=== PATIENT | male | born 1955 | race African-American/Black ===

== ENCOUNTER 2016-03-17 10:59 | Observation (INO) ==
[2016-03-17] MEDS ORDERED: MORPHINE 2 MG/ML SYRINGE IVP STA (11:04)
[2016-03-17] MEDS ORDERED: ZOFRAN 4 MG/2 ML IVP STA (11:04)
[2016-03-17] MEDS ORDERED: VASOTEC IV IVP STA (11:08)
[2016-03-17 11:13] LABS: BASOPHILS % (AUTO) 0.6 % (0.0-3.0); EOSINOPHILS # (AUTO) 0.1 K/ul (0.0-0.7); EOSINOPHILS % (AUTO) 1.3 % (0.0-7.0); HEMOGLOBIN 16.5 g/dl (14.0-18.0); IMMATURE GRANULOCYTE % (AUTO) 0.2 % (0.0-5.0); LYMPHOCYTES # (AUTO) 1.9 K/uL (0.60-3.4); LYMPHOCYTES % (AUTO) 35.8 (10.0-50.0); MEAN CORPUSCULAR HEMOGLOBIN 29.7 pg (27.0-31.0); MEAN CORPUSCULAR HGB CONC 35.1 (31.8-35.4); MEAN CORPUSCULAR VOLUME 84.7 fl (80.0-94.0); MONOCYTES # (AUTO) 0.6 K/uL (0.4-2.0); MONOCYTES % (AUTO) 10.3 (0-10); NEUTROPHILS # (AUTO) 2.8 K/ul (2.0-6.9); NEUTROPHILS % (AUTO) 51.8; PLATELET COUNT 158 10^3/uL (140-440); RED BLOOD COUNT 5.55 10^6/ul (4.70-6.10); WHITE BLOOD COUNT 5.34 K/ul (4.2-10.2)
[2016-03-17 11:25] LABS: H. PYLORI ANTIBODY NEGATIVE (NEGATIVE); H.PYLORI INTERNAL QC INTERNAL QC VALID
--- NOTE | 2016-03-17 11:30 | DI ---
EXAM: CHEST FRONTAL VIEW HISTORY: Chest pain. COMPARISON: None FINDINGS: Heart size and mediastinum within normal limits. Lungs are free of infiltrate. No c onsolidation or pleural fluid. There is no pneumothorax or acute bony finding. IMPRESSION: Findings within normal limits.
[2016-03-17 11:41] LABS: BILIRUBIN,URINE Negative (NEGATIVE); KETONES,URINE Negative (NEGATIVE); LEUKOCYTE ESTERASE ,URINE Negative (NEGATIVE); NITRITE,URINE Negative (NEGATIVE); PROTEIN,URINE Negative (NEGATIVE); URINE, BLOOD Trace-intact (NEGATIVE)
--- NOTE | 2016-03-17 11:41 | ED.PDOC ---
General ED Provider: Dr. SIMONE ASHTON JR Chief Complaint: Chest Pain Stated Complaint: states has had mid chest pressure past month--"bad indigestion "--chest pressure today--seen at dr diamond office and sent directly to er due to chest pressure and htn-pt anxious--states he took b/p med this am prior to er --pressure to chest intermittent[End]2DAYS 98.4 118 16 234/132 5/10. : occ lortab use--last used 1 month ago Time Seen by Physician: 11:00 Mode of Arrival: Walk-In Information Source: Patient Exam Limitations: No limitations Primary [facility] and Triage Documentation Reviewed and Agree: No Review of Systems - Review Of Systems Constitutional: Reports: Chills, Diaphoresis, Malaise, Weakness Eyes: Reports: No symptoms Ears, Nose, Mouth, Throat: Reports: No symptoms Respiratory: Reports: Short of air Cardiac: Reports: Chest pain ((PRESSURE)) GI: Reports: Abdominal pain, Nausea : Reports: No symptoms Musculoskeletal: Reports: No symptoms Skin: Reports: No symptoms Neurological: Reports: Anxiety Endocrine: Reports: No symptoms Hematologic/Lymphatic: Reports: No symptoms All Other Systems: Other Past Medical History - Past Medical History Endocrine: Reports: None Cardiovascular: Reports: Hypertension Respiratory: Reports: None Hematological: Reports: None Gastrointestinal: Reports: Liver (hep c ) Genitourinary: Reports: None Neuro/Psych: Reports: None Musculoskeletal: Reports: None Cancer: Reports: None Other Pertinent Past Medical History: left leg with hansen ana--[End]hep c HTN - Surgical History General Surgical History: Reports: Orthopedic (left leg with steel ana) - Family History Family History: Reports: Unknown - Social History Smoking Status: Former smoker Hx Substance Use: Yes (occ lortab use--last used 1 month ago) Alcohol Screening: Occasionally Physical Exam - Physical Exam Appearance: Well-appearing Pain Distress: Moderate Eyes: ROBERT, EOMI, Conjunctiva clear ENT: Ears normal, Nose normal, Oropharynx normal Neck: Supple Respiratory: Airway patent, Breath sounds clear, Breath sounds equal, Respirations nonlabored Cardiovascular: RRR, Pulses normal, No rub, No murmur GI/: Soft, Nontender, No masses, Bowel sounds normal, No Organomegaly Musculoskeletal: Normal strength, ROM intact, No edema, No calf tenderness Skin: Warm, Dry, Normal color Neurological: Sensation intact, Motor intact, Reflexes intact, Cranial nerves intact, Alert, Oriented Psychiatric: Affect appropriate, Mood appropriate Physician Notification - Case Discussed Physician Notified: KAREN Time of Notification: 13:43 (STRESS ECHO ADMIT CARDIOLOGY CONSULT) Critical Care Note - Critical Care Note Total Time (mins): 35 Course - Course Hematology/Chemistry: 03/17/16 11:10 03/17/16 11:10 Orders, Labs, Meds: Lab Review 03/17/16 03/17/16 03/17/16 11:10 11:32 11:40 WBC 5.34 RBC 5.55 Hgb 16.5 Hct 47.0 MCV 84.7 MCH 29.7 MCHC 35.1 RDW Coeff of Dalila 11.7 Plt Count 158 Immature Gran % (Auto) 0.2 Neut % (Auto) 51.8 Lymph % (Auto) 35.8 [place] % (Auto) 10.3 H Eos % (Auto) 1.3 Baso % (Auto) 0.6 Immature Gran # (Auto) 0.0 Neut # 2.8 Lymph # 1.9 [place] # 0.6 Eos # 0.1 Baso # 0.0 D-Dimer 0.19 Sodium 140 Potassium 3.6 Chloride 104 Carbon Dioxide 24 Anion Gap 15.6 BUN 9 Creatinine 0.90 Estimated GFR (MDRD) 104.00 BUN/Creatinine Ratio 10.00 Glucose 101 Calcium 9.8 Total Bilirubin 0.80 AST 59 H ALT 110 H Alkaline Phosphatase 56 Total Creatine Kinase 196 CK-MB (CK-2) 1.4 CK-MB (CK-2) % 0.35161 Troponin I < 0.0100 B-Natriuretic Peptide 48 Total Protein 8.5 H Albumin 4.7 Globulin 3.8 Albumin/Globulin Ratio 1.24 Amylase 93 Lipase 34 Urine Color Yellow Urine Clarity Clear Urine pH 7.0 Ur Specific [place] 1.015 Urine Protein Negative Urine Glucose (UA) Negative Urine Ketones Negative Urine Blood Trace-intact Urine Nitrite Negative Urine Bilirubin Negative Urine Urobilinogen 0.2 Ur Leukocyte Esterase Negative Urine Microscopic RBC 0-2 Ur Squamous Epith Cells Not present Urine Opiates Screen Negative Ur Oxycodone Screen Negative Urine Methadone Screen Negative Ur Propoxyphene Screen Negative Ur Barbiturates Screen Negative U Tricyclic Antidepress Negative Ur Phencyclidine Scrn Negative Ur Amphetamine Screen Negative U Methamphetamines Scrn Negative U Benzodiazepines Scrn Positive Urine Cocaine Screen Negative U Cannabinoids Screen Negative H. pylori IgG Antibody Negative Orders Category Date Time Status EKG-(ED ONLY) Stat CARDIO 03/17/16 11:04 Completed STRESS ECHO Routine CARDIO 03/17/16 13:35 Ordered NPO REMINDER: IMAGING ONCE CARE 03/17/16 11:06 Completed ED DEPARTMENT SALES MANAGER APPLIED .ONCE EMERGENCY 03/17/16 11:04 Active ED IV/MEDIPORT/POWERPORT .ONCE EMERGENCY 03/17/16 11:04 Active AMYLASE Stat LAB 03/17/16 11:10 Completed B-TYPE NATRIURETIC PEPTIDE Stat LAB 03/17/16 11:10 Completed CBC W/ AUTO DIFF Stat LAB 03/17/16 11:10 Completed COMPREHENSIVE METABOLIC PANEL Stat LAB 03/17/16 11:10 Completed CREATINE KINASE Stat LAB 03/17/16 11:10 Completed D-DIMER Stat LAB 03/17/16 11:10 Completed H. PYLORI SCREEN Stat LAB 03/17/16 11:10 Completed LIPASE Stat LAB 03/17/16 11:10 Completed TROPONIN I Stat LAB 03/17/16 11:10 Completed URINALYSIS C & S IF INDICATED Stat LAB 03/17/16 11:32 Completed URINE DRUG SCREEN (RAPID FOR ED) [DRUG SCREEN, URINE, LAB 03/17/16 11:40 Completed RAPID] Stat 0.9 % Sodium Chloride [Saline Flush] MEDS 03/17/16 11:04 Active 1 syr IVF PRN PRN Enalaprilat Dihydrate [Vasotec IV] MEDS 03/17/16 11:08 Discontinued 1.25 mg IVP ONCE STA Morphine Sulfate [Morphine 2 mg/ml Syringe] MEDS 03/17/16 11:04 Discontinued 2 mg IVP ONCE STA Ondansetron HCl/Pf [Zofran 4 mg/2 ml] MEDS 03/17/16 11:04 Discontinued 4 mg IVP ONCE STA CHEST, 1V AP ONLY Stat RADS 03/17/16 11:04 Completed U/S ABDOMEN, RT. UPPER QUAD Stat RADS 03/17/16 11:04 Completed Medications Generic Name Dose Route Start Last Admin Trade Name Freq PRN Reason Stop Dose Admin Sodium Chloride 1 syr 03/17/16 11:04 03/17/16 11:27 Saline Flush IVF 1 syr PRN PRN Administration To flush IV Discontinued Medications Generic Name Dose Route Start Last Admin Trade Name Carlos PRN Reason Stop Dose Admin Enalaprilat 1.25 mg 03/17/16 11:08 03/17/16 11:26 Vasotec Iv IVP 03/17/16 11:09 1.25 mg ONCE STA Administration Morphine Sulfate 2 mg 03/17/16 11:04 03/17/16 11:30 Morphine 2 Mg/Ml Syringe IVP 03/17/16 11:05 2 mg ONCE STA Administration Ondansetron HCl 4 mg 03/17/16 11:04 03/17/16 11:28 Zofran 4 Mg/2 Ml IVP 03/17/16 11:05 4 mg ONCE STA Administration Vital Signs: Temp Pulse Resp BP Pulse Ox 03/17/16 11:00 98.4 F 118 H 16 234/132 H 98 SATNAM Risk Score SATNAM Risk Score: Risk Score Odds of by 30D 0 0.1 (0.1-0.2) 1 0.3 (0.2-0.3) 2 0.4 (0.3-0.5) 3 0.7 (0.6-0.9) 4 1.2 (1.0-1.5) 5 2.2 (1.9-2.6) 6 3.0 (2.5-3.6) 7 4.8 (3.8-6.1) Departure - Departure Time of Disposition: 11:45 Disposition: HOME SELF-CARE Discharge Problem: Chest pain Instructions: Chest Pain (ED), Chest Wall Pain (ED) Condition: Good Pt referred to PMD for follow-up: No (FOLLOW UP [facility]) Allergies/Adverse Reactions: Allergies No Known Allergies Allergy (Unverified 03/17/16 11:10)
[2016-03-17 11:46] LABS: ADD URINE MICROSCOPIC YES
[2016-03-17 11:52] LABS: ALANINE AMINOTRANSFERASE 110 U/L (12-78); ALBUMIN 4.7 g/dL (3.4-5.0); ALBUMIN/GLOBULIN RATIO 1.24; ALKALINE PHOSPHATASE 56 U/L (56-119); AMYLASE 93 U/L (25-115); ANION GAP 15.6; ASPARTATE AMINO TRANSFERASE 59 U/L (15-37); BLOOD UREA NITROGEN 9 mg/dL (7-18); CALCIUM 9.8 mg/dL (8.2-10.2); CARBON DIOXIDE 24 mmol/L (23-31); CHLORIDE 104 mmol/L (98-107); CREATINE KINASE 196 U/L; GLUCOSE 101 mg/dL (82-115); LIPASE 34 U/L (8-78); POTASSIUM 3.6 mmol/L (3.5-5.1); SODIUM 140 mmol/L (136-145); TOTAL PROTEIN 8.5 g/dL (5.8-8.1)
[2016-03-17 11:57] LABS: CREATINE KINASE MB 1.4 ng/ml (0.0-3.6)
[2016-03-17 11:57] LABS: COCAIN SCREEN,URINE NEGATIVE (NEGATIVE)
--- NOTE | 2016-03-17 12:04 | US ---
Exam: Limited right upper quadrant abdominal sonogram Clinical indication: Right upper quadrant abdominal tenderness with history of hepatitis C. Findings: There are no prior studies available for comparison. The pancreas has an unremarkable sonographic appearance, without sonographically detected focal abno rmality. The IVC is patent. The liver has an unremarkable sonographic appearance, without sonographically detected focal abnorma lity. There is no intrahepatic biliary duct dilatation. There is normal antegrade portal venous fl ow. There may be a tiny gallbladder wall polyp of no clinical concern measuring maybe 0.2 cm. Otherwise , the gallbladder is unremarkable. The common bile duct measures 0.4 cm in diameter. There is no ascites. The right kidney measures 10.0 x 4.1 x 3.9 cm in diameter. The right renal cortex measures 0.8 cm i n thickness.. Impression: Unremarkable right upper quadrant abdominal sonogram.
[2016-03-17] MEDS ORDERED: TYLENOL PO PRN (13:46)
[2016-03-17] MEDS ORDERED: VASOTEC IV IVP PRN (13:51)
[2016-03-17] MEDS ORDERED: ZESTORETIC 20-12.5 MG TAB PO SCH (15:00)
[2016-03-17] MEDS ORDERED: NORVASC PO STA (16:35)
[2016-03-17 16:45] VITALS: BMI 25.8
[2016-03-17] MEDS: PROTONIX PO SCH (16:49)
[2016-03-17] MEDS: SODIUM CHLORIDE 1,000 ML IV SCH (16:50)
[2016-03-17] MEDS ORDERED: ATIVAN PO STA (18:21)
[2016-03-17 20:55] LABS: TROPONIN I 0.01 ng/ml (0.0000-0.4000)
[2016-03-17 21:20] LABS: CREATINE KINASE MB 0.9 ng/ml (0.0-3.6)
[2016-03-18 04:07] LABS: BASOPHILS % (AUTO) 0.6 % (0.0-3.0); EOSINOPHILS # (AUTO) 0.1 K/ul (0.0-0.7); EOSINOPHILS % (AUTO) 1.7 % (0.0-7.0); HEMATOCRIT 45.7 % (42.0-52.0); IMMATURE GRANULOCYTE % (AUTO) 0.2 % (0.0-5.0); LYMPHOCYTES # (AUTO) 1.9 K/uL (0.60-3.4); LYMPHOCYTES % (AUTO) 36.5 (10.0-50.0); MEAN CORPUSCULAR HEMOGLOBIN 30.1 pg (27.0-31.0); MEAN CORPUSCULAR VOLUME 85.9 fl (80.0-94.0); MONOCYTES # (AUTO) 0.5 K/uL (0.4-2.0); MONOCYTES % (AUTO) 9.8 (0-10); NEUTROPHILS # (AUTO) 2.7 K/ul (2.0-6.9); NEUTROPHILS % (AUTO) 51.2; PLATELET COUNT 167 10^3/uL (140-440); RED BLOOD COUNT 5.32 10^6/ul (4.70-6.10); WHITE BLOOD COUNT 5.18 K/ul (4.2-10.2)
[2016-03-18 04:26] LABS: ALBUMIN 4.1 g/dL (3.4-5.0); ALBUMIN/GLOBULIN RATIO 1.17; ANION GAP 12.7; BILIRUBIN,TOTAL 1.6 mg/dL (0.00-1.20); BUN/CREATININE RATIO 9.25; CALCIUM 9.1 mg/dL (8.2-10.2); CREATININE 1.08 mg/dL (0.60-1.10); POTASSIUM 3.7 mmol/L (3.5-5.1); TOTAL PROTEIN 7.6 g/dL (5.8-8.1)
[2016-03-18 04:30] LABS: CREATINE KINASE 106 U/L
[2016-03-18 04:43] LABS: CHOL/HDL RATIO 3.2 (4.5-6.4)
[2016-03-18] MEDS: SODIUM CHLORIDE 1,000 ML IV SCH ×2 (05:09)
[2016-03-18] MEDS: PROTONIX PO SCH (05:46)
--- NOTE | 2016-03-18 08:37 | HP ---
CHIEF COMPLAINT/ HISTORY OF PRESENT ILLNESS: Chest pressure more to the right and the midline. He also has some abdominal discomfort radiating upwards towards the chest and spreading to both left and right anterior chest. The patient claimed that he had not been feeling well since about a month ago. The patient wanted to just stay in bed and do nothing. He didn't really know what was going on. He also had experienced this intermittent chest pressure but not accompanied by nausea, vomiting or diaphoresis. The patient was seen at the office today for followup and he did complain of the chest pressure and questioning he still had the chest pressure and his blood pressure was elevated to 110 systolic. The patient had not taken his medications so he took the Lisinopril Hydrochlorothiazide 20-12.5mg at the office. His lungs were clear. Heart is normal sinus rhythm slightly rapid, abdomen no mass and no bruit. Because of the chest pain and pressure this patient was advised to go to the emergency room. I did tell him that I could work him up but he would not in the room he would be sitting in the waiting room and they will call him for every test that has to be done. He agreed to go to the emergency room and the emergency room was then notified about the patient 's coming over for the reason. PAST PERSONAL HISTORY: The patient is hypertensive History of hepatitis C, untreated Steel ana on the left leg from fracture FAMILY HISTORY: Mother had COPD and congestive heart failure SOCIAL HISTORY: The patient is single and works with [email or web address], [employer]. He stopped smoking several years ago and occasional alcohol drink and the last one was about a month ago. MEDICATIONS: Lisinopril/Hydrochlorothiazide 20-12.5mg one daily ALLERGIES: No known drug allergies. REVIEW OF SYSTEMS: CONSTITUTIONAL: The patient is alert, oriented time four with no fever and no chills. No significant fatigue. DEBONE SUPERVISOR: Denies any dizziness or severe headaches. No history of seizures disorder. No History of syncope. VISUAL: The patient denies any double vision, blurred vision or transient loss of vision. AUDITORY: The patient hears quite well. Denies any tinnitus, pain or drainage. RESPIRATORY: No cough, no hemoptysis. CARDIOVASCULAR: The patient has tightness and pressure in the anterior chest more to the right side of the sternum. No associated with nausea, anorexia or diaphoresis. This problem had been intermittent over the last month. GASTROINTESTINAL: The patient had no nausea, anorexia and no dysphagia. He has some intermittent abdominal discomfort from the lower abdomen going up towards the chest. GENITOURINARY: Denies any pain, frequency or urgency of urination. MUSCULOSKELETAL: The patient has no significant joint pains. ENDOCRINE: Negative. INTEGUMENT: Denies any rash or pleuritis HEMATOLOGIC: The patient has Hep C for some time and had not been treated. He has been advised to seek treatment and had been referred to GI previously. PSYCHIATRIC: Affect is normal. The patient however is more or less anxious and he does tell me that's what he is. Told him that he should just relax. His anxiety isn't going to be helpful to him anytime now or anytime in the future. PHYSICAL EXAMINATION: GENERAL: The patient is a 61 year old male, black admitted to the hospital because of chest tightness and uncontrolled hypertension. Rated the pain at 5 on the scale of 0-10. The patient is 5'9 and 180 pounds in the emergency room was 174 on admission to the floor. VITAL SIGNS: Blood pressure recorded in the emergency room was 234/132, temperature 98.4, pulse 118 and respiratory rate 16. HEAD: Unremarkable. FACE: Symmetrical and equal with no facial weakness. No tenderness in the frontal maxillary sinus areas to palpation under pressure. EYES: Pupils equal/reactive to light. About 3mm in size. Conjunctivae not pale. Sclerae not icteric. MOUTH: Unremarkable. THROAT: No inflammation, tumors or exudate. NECK: No masses. No bruit. No tenderness. No rigidity. CHEST: Symmetrical and equal with some tenderness in the sternum to palpation but not significant. Good expansion. LUNGS: Breaths are heard in both sides. No rales or wheezing. HEART: Audible and regular with good tones. Somewhat tachycardiac. ABDOMEN: Flat and soft with no remarkable tenderness. No guarding, Bowel sounds active. No masses palpable. Liver not palpable. LOWER EXTREMITIES: Symmetrical and equal with no left edema and no tenderness in the calf muscles. UPPER EXTREMITIES: Symmetrical and equal. ASSESSMENT: 1. Chest Oppression, etiology undetermined 2. Hypertension, uncontrolled 3. History of Hepatitis C,no history of treatment MTDD
[2016-03-18] MEDS ORDERED: HYZAAR 50-12.5 MG TAB PO SCH (09:00)
[2016-03-18 15:39] VITALS: BP 119/70; TEMP 98
--- NOTE | 2016-03-19 08:58 | STRESSMOD ---
Ordering Physician: FILIPE LAGUERRE Date of Test: 03/18/16 Medical History : CHEST PAIN, HYPERTENSION Current Medications: HYZAAR, PROTONIX Physical Findings: S1, S2, NO S3 Resting EKG: SINUS RHYTHM/NO ACUTE CHANGES Target Heart Rate: 135/159 STAGE MPH/GRADE HEART RATE BPM BLOOD PRESSURE mmhg RHYTHM S-T SEGMENT UP DOWN SYMPTOMS,COMMENTS At Rest 73 142/80 SR X NONE 1 1.7/0% 121 160/58 SR X NONE 2 1.7/5% 3 1.7/10% 4 2.5/12% 5 3.4/14% 6 4.2/16% 7 5.18% Immediately after 136 160/92 SR X FATIGUE Total Time: 6:08 Maximum Heart Rate Reached: 136 Reason for Termination: FATIGUE 5 MIN POST EXERCISE: HR 86/BPM, BP 160/88 MMHG ____ INTERPRETATION: 98% OXYGEN SATURATION WITH EXERCISE ON ROOM AIR METS 4.0 1. NO EVIDENCE OF ISCHEMIA BY ST- T WAVE 2. NO CHEST PAIN OR CHEST DISCOMFORT 3. BLOOD PRESSURE RESPONSE:HYPERTENSION 4. NO ARRHYTHMIAS NORMAL LEFT VENTRICULAR CONTRACTILITY--RESTING AND POST EXERCISE MTDD
--- NOTE | 2016-03-19 09:01 | ECHOSTRESS ---
Date of Exam: 03/18/16 [facility] Reason for Echo: CHEST PAIN, HYPERTENSION, STRESS TEST--NO ISCHEMIA M-Mode Normal Adult Results LV Dimensions Normal Adult Results AoV Opening excursions >1.6 LVEDD-base- 3.5-5.8 Ao root dimensions 2.0-3.7 LVESD-base- 3.1-4.6 L. Atrium dimensions 1.9-3.8 Post. Wall thickness 0.8-1.1 IV septum (thickness) 0.7-1.2 Post. Wall excursion 0.72-1.3 Septal motion Systolic motion R. Ventricular cavity 1.5-2.0 LVEF 60% Paradoxical septal wall motion 2-D: NORMAL LEFT VENTRICULAR CONTRACTILITY--RESTING AND POST EXERCISE M-MODE: MV: AV: TV: PV: CHAMBER SIZE: WALL MOTION: NORMAL LEFT VENTRICULAR CONTRACTILITY--RESTING AND POST EXERCISE PERICARDIUM: INTERPRETATION: 1. NORMAL LEFT VENTRICULAR CONTRACTILITY--RESTING AND POST EXERCISE MTDD
--- NOTE | 2016-03-19 09:29 | DS ---
PATIENT IDENTIFICATION: 61-year-old black male admitted to the hospital because of anterior chest pain more to the right of the sternum. This patient had this problem intermittently over one month. The pain was described as oppressive or pressure but not accompanied by nausea, anorexia or diaphoresis. He was evaluated in the emergency room and the workup was essentially normal consisting of CK, troponin , electrocardiogram and chest x-ray. D. dimer was normal 0.19. The patient was admitted to the hospital for further observation and further testing. The patient's blood pressure also was markedly elevated at the office as well as in the emergency room and also in the initial hours of admission. The patient at 10 o'clock, 03/17/16 had a blood pressure of 120/73; at midnight 03/18/16 blood pressure 111/73. Blood pressure in the emergency room was 234/132 and when admitted to the floor the blood pressure on admission was 193/127 left, 185/111 right. The patient was seen by school nurse in consultation and stress echo was done. The verbal report to me was the stress test was negative for ischemia and the echocardiogram was essentially normal. I do not have this report. I did call the technologist and he repeated to me the same thing. The patient at time of discharge was alert, feeling much better without any chest oppression. The epigastric distress has improved remarkably with Protonix and he would like to continue the medication. His vital signs again at two o'clock in the afternoon was recorded with a temperature of 98, pulse 78, BP 119/70, respiratory rate 18, oxygen saturation 94% on room air. He is alert and oriented with movement of all extremities and no facial weakness. NECK: No mass, no bruit. LUNGS: Clear to auscultation. HEART: Audible and regular with good tones. ABDOMEN: Nontender. Hepatitis C, RNA by PCR was requested prior to discharge. This patient on discharge is prescribed the following medication, Hyzaar 50/12.5 one twice a day and Protonix 40 mg tablet one daily before a meal. He was further instructed to see me one week from today at the office to monitor his hypertension. His lipid panel is normal and no statin medication is prescribed at this time. FINAL ASSESSMENT: 1. CHEST PAIN TO THE RIGHT OF THE STERNUM, PRESSURE SENSATION, ETIOLOGY UNDETERMINED. 2. HYPERTENSION, SEVERE NOW CONTROLLED. 3. HISTORY OF HEPATITIS C, NOT TREATED ACCORDING TO THE PATIENT. PROGNOSIS: Guarded. MTDD
--- NOTE | 2016-03-19 09:41 | ECHO2D ---
Date of Exam: 03/18/16 Ordering Physician: [facility] Reason for Echo: CHEST PAIN, HYPERTENSION M-Mode Normal Adult Results LV Dimensions Normal Adult Results AoV Opening excursions >1.6 >1.6 LVEDD-base- 3.5-5.8 5.0 Ao root dimensions 2.0-3.7 3.3 LVESD-base- 3.1-4.6 L. Atrium dimensions 1.9-3.8 4.0 Post. Wall thickness 0.8-1.1 1.0 IV septum (thickness) 0.7-1.2 1.0 Post. Wall excursion 0.72-1.3 NORMAL Septal motion NORMAL Systolic motion R. Ventricular cavity 1.5-2.0 NORMAL LVEF 60% 54% Paradoxical septal wall motion NORMAL 2-D : 2-D M Mode Echocardiogram was performed using apical four chamber and left parasternal long and short axis views. Mitral, tricuspid and aortic valves appear to be normal. Contractility of the left ventricle seems to be normal, so is the cavity size. Left atrial cavity size and aortic root appear to be normal. There is no pericardial effusion. There is no thrombus noted in the left ventricular or left aortic cavity. No mitral valve prolapse noted. M-MODE: MV: NORMAL AV: NORMAL TV: NORMAL PV: CHAMBER SIZE: NORMAL WALL MOTION: NORMAL PERICARDIUM: NORMAL INTERPRETATION: 1. NORMAL 2 "D" "M" MODE ECHO MTDD
[2016-03-20 19:20] LABS: HEPATITIS C GENOTYPE 1a (.)
[2016-03-23 09:24] LABS: HCV LOG 10 6.272 (.)
--- NOTE | 2016-03-23 13:50 | CONS ---
DATE OF SERVICE: 03/18/16 CONSULT FOLLOWUP SUBJECTIVE: 61-year-old white male was seen for evaluation of chest pain. The patient's chest pain was pressure, steady ache, lower substernal localized, more like bad indigestion, practically not consistent with coronary insufficiency. So far, the patient's EKG shows sinus rhythm with LVH, unchanged times two. Telemetry does not show any ST wave changes suggestive of any acute myocardial event. The patient's cardiac markers were negative. REVIEW OF SYSTEMS: CONSTITUTIONAL: No night sweats. No fatigue, malaise, lethargy. No fever or chills. HEENT: Eyes: No visual changes. No eye pain. No eye discharge. ENT: No runny nose. No epistaxis. No sinus pain. No sore throat. No odynophagia. No ear pain. No congestion. RESPIRATORY: No cough, no congestion. No hemoptysis. CARDIOVASCULAR: No coronary insufficiency type of symptoms. No angina symptoms. No CHF symptoms. No atypical chest pain for CAD. No palpitations. No shortness of breath. GASTROINTESTINAL: No abdominal pain. No nausea or vomiting. No diarrhea or constipation. No hematemesis. No hematochezia. GENITOURINARY: No urgency. No frequency. No dysuria. No hematuria. No obstructive symptoms. No discharge. No pain. No significant abnormal bleeding. MUSCULOSKELETAL: No musculoskeletal pain. No joint swelling. No arthritis. NEUROLOGICAL: No headache. No neck pain. No syncope. No seizures. No dizziness. PSYCHIATRIC: Not anxious. No depression. No suicidal thoughts. No homicidal thoughts. SKIN: No rash. No lesions. No wounds. ENDOCRINE: No unexplained weight loss. No weight gain. HEMATOLOGIC/LYMPHATIC: No anemia. No purpura. No petechiae. No prolonged or excessive bleeding. No palpable lymph nodes. PHYSICAL EXAMINATION: GENERAL: The patient is oriented to time, place and person. VITAL SIGNS: Temperature 98.2, pulse 80, respiratory rate 15, BP 130/80. HEENT: Head normocephalic, atraumatic. Eyes: Extraocular muscles are intact. Pupils are equal, round and reactive to light and accommodation. Ears: No lesions. Nose appeared normal. Throat: No exudate or erythema. NECK: Supple. No JVD, no carotid bruit. No lymphadenopathy or thyromegaly. LUNGS: Clear to auscultation. Percussion note normal. Chest symmetrical. HEART: S1, S2, no S3. No murmurs. No cyanosis or clubbing. No ascites. Pulses: Dorsalis pedis and posterior tibial pulses +1 to +2 both sides. ABDOMEN: Soft. Nontender. Bowel sounds active. No CVA tenderness. No mass felt. EXTREMITIES: No edema. Full range of motion of all extremities, equal. NEUROLOGIC: No focal deficit. Cranial nerves II through XII are grossly intact. No headache, no double vision or headache. SKIN: Not dry. Intact. Turgor - normal. LYMPHATIC: No palpable lymph nodes/no lymphedema. MUSCULOSKELETAL: Normal joints with no swelling. Muscle tone is normal. ASSESSMENT: 1. CHEST PAIN SEEMS TO BE NONCARDIAC BY HISTORY. The patient had an echocardiogram done which showed LVH, normal LV contractility. Stress echo showed no ischemia. LV contractility normal resting and post exercise. The patient's blood pressure response was hypertensive. RECOMMENDATIONS: 1. The patient so far along with cardiac markers and EKGS do not show any evidence of coronary insufficiency being the cause of his chest pain. 2. The patient needs to be on antihypertensive medication. 3. Continue Hyzaar and Norvasc as recommended. 4. The patient has PACs at times. If they become more frequent then Norvasc could be switched to Coreg or Cardizem. The patient's case discussed with attending. CONDITION: Stable. MTDD
--- NOTE | 2016-03-25 15:51 | CONS ---
DATE OF CONSULTATION: 03/17/16 REASON FOR CONSULTATION: Chest pain (Pressure) HISTORY OF PRESENT ILLNESS: Mid chest pressure for past month "bad indigestion". Chest pressure today. Went to see Dr. Mario in office. Blood pressure elevated-sent to ER due to hypertension and chest pressure. Took blood pressure medication prior to ER. Blood pressure in ER 234/132 and heart rate 118. REVIEW OF SYSTEMS: CONSTITUTIONAL: No night sweats. Malaise and weakness. No fever or chills. HEENT: Eyes: No visual changes. No eye pain. No eye discharge. ENT: No runny nose. No epistaxis. No sinus pain. No sore throat. No odynophagia. No ear pain. No congestion. RESPIRATORY: No cough, no congestion. No hemoptysis. CARDIOVASCULAR: No angina symptoms. No CHF symptoms. No atypical chest pain for CAD. No palpitations. No shortness of breath. Chest pain center of chest, unrelated to exertion/sharp steady/ aches GASTROINTESTINAL: No abdominal pain. Nausea. No diarrhea or constipation. No hematemesis. No hematochezia. GENITOURINARY: No urgency. No frequency. No dysuria. No hematuria. No obstructive symptoms. No discharge. No pain. No significant abnormal bleeding. MUSCULOSKELETAL: No musculoskeletal pain. No joint swelling. Steel ana left leg. NEUROLOGICAL: Headache. No neck pain. No syncope. No seizures. No dizziness. PSYCHIATRIC: Anxious. No depression. No suicidal thoughts. No homicidal thoughts. SKIN: No rash. No lesions. No wounds. ENDOCRINE: No unexplained weight loss. No weight gain. HEMATOLOGIC/LYMPHATIC: No anemia. No purpura. No petechiae. No prolonged or excessive bleeding. No palpable lymph nodes. MEDICATIONS: Ibuprofen off and on Lisinopril/HCTZ Took a Ritalin recently to calm him down-not his prescribed medication Lortab-last dose one month ago. ALLERGIES: None. PAST MEDICAL HISTORY/PAST SURGICAL HISTORY: Hepatitis C Hypertension Steel ana in left leg. SOCIAL/PERSONAL/FAMILY HISTORY: Former smoker, Occasional alcohol use and single. PHYSICAL EXAMINATION: GENERAL: The patient is oriented times 3. VITAL SIGNS: Pulse 79, blood pressure 193/127, temperature 98.2 and pulse ox 97 % on room air. HEENT: Head normocephalic, atraumatic. Eyes: Extraocular muscles are intact. Pupils are equal, round and reactive to light and accommodation. Ears: No lesions. Nose appeared normal. Throat: No exudate or erythema. NECK: Supple. No JVD, no carotid bruit. No lymphadenopathy or thyromegaly. LUNGS: Clear to auscultation. Percussion note normal. Chest symmetrical. HEART: S1, S2, no S3. No murmurs. No cyanosis or clubbing. No ascites. Pulses: Dorsalis pedis and posterior tibial pulses +1. ABDOMEN: Soft. Nontender. Bowel sounds active. No CVA tenderness. No mass felt. EXTREMITIES: No edema. Full range of motion of all extremities, equal. NEUROLOGIC: No focal deficit. Cranial nerves II through XII are grossly intact. No headache, no double vision or headache. SKIN: Not dry. Intact. Turgor - normal. LYMPHATIC: No palpable lymph nodes/no lymphedema. MUSCULOSKELETAL: Normal joints with no swelling. Muscle tone is normal. LABS: H-Pylori negative, CBC within normal limits, BNP 48, AST 59, ALT 110, CPK .196, CKMB 1.4, Troponin <0.0100, TSH 1.073, T4 7.7, Triglycerides 58, cholesterol 151 , HDL 47, Chol/HDL Ratio 3.2 and LDL 92. Chest x-ray normal. EKG ER no acute changes LVH. Telemetry sinus rhythm with no acute changes. ASSESSMENT: 1. Chest pain atypical for coronary artery disease 2. History of smoking 3. Hypertension PLAN: 1. Echo 2. Stress echo 3. TSH, T4 4. Lipids 5. Coronary artery disease risk factors discussed 6. Lipid profile OK 7. Dash Diet discussed 8. Monitor blood pressure weekly 9. Goal blood pressure 135/85 or less Thanks for referral. Will follow TIME SPENT: More than 60 minutes. MTDD
== END 2016-03-18 16:00 | disposition home or self-care (01) ==
LOC: ED 10:59 → SCU 14:31
PROVIDERS: ADMIT General Practice; ATTEND General Practice
DX: R07.89 Other chest pain (principal); I10 Essential (primary) hypertension; B18.2 Chronic viral hepatitis C; Z79.899 Other long term (current) drug therapy
CPT/HCPCS: 36415; 80053; 80061; 80306; 81001; 82150; 82550; 82553; 83690; 83880; 84436; 84443; 84484; 85025; 85379; 86677; 87522; 93005; 93010; 96361; 96374; 96375; 99217; 99219; 99284

== ENCOUNTER 2017-05-27 14:39 | Outpatient (CLI) | END 2017-05-27 14:40 | disposition home or self-care (01) | LOC: FCC-LAB 14:39 | PROVIDERS: ATTEND General Practice | DX: B19.20 Unspecified viral hepatitis C without hepatic coma (principal) | CPT/HCPCS: 36415; 80076 ==

== ENCOUNTER 2018-02-17 10:00 | Outpatient (CLI) | END 2018-02-17 10:01 | disposition home or self-care (01) | LOC: LAB 10:00 → RHC-LAB 10:01 | PROVIDERS: ATTEND General Practice | DX: I10 Essential (primary) hypertension (principal); B19.20 Unspecified viral hepatitis C without hepatic coma; Z87.891 Personal history of nicotine dependence; Z79.899 Other long term (current) drug therapy | CPT/HCPCS: 36415; 80053; 80061; 81001; 85025 ==

== ENCOUNTER 2018-02-20 08:56 | Outpatient (CLI) | END 2018-02-20 08:57 | disposition home or self-care (01) | LOC: LAB 08:56 → RHC-LAB 08:57 | PROVIDERS: ATTEND General Practice | DX: I10 Essential (primary) hypertension (principal); Z79.899 Other long term (current) drug therapy; B19.20 Unspecified viral hepatitis C without hepatic coma; Z87.891 Personal history of nicotine dependence | CPT/HCPCS: 81001; 87086 ==

== ENCOUNTER 2018-06-20 16:04 | Outpatient (CLI) | END 2018-06-20 16:05 | disposition home or self-care (01) | LOC: RHC-LAB 16:04 | PROVIDERS: ATTEND General Practice | DX: I10 Essential (primary) hypertension (principal); Z87.891 Personal history of nicotine dependence | CPT/HCPCS: 36415; 80053; 81001; 84443; 85025 ==

== ENCOUNTER 2018-07-05 09:06 | Outpatient (CLI) | END 2018-07-05 09:07 | disposition home or self-care (01) | LOC: RHC-LAB 09:06 | PROVIDERS: ATTEND General Practice | DX: E87.6 Hypokalemia (principal); B19.20 Unspecified viral hepatitis C without hepatic coma; I10 Essential (primary) hypertension | CPT/HCPCS: 36415; 80048; 84443 ==

== ENCOUNTER 2018-08-08 12:26 | Outpatient (CLI) ==
[2018-07-27 14:51] VITALS: BMI 20.7
== END 2018-08-08 12:27 | disposition home or self-care (01) ==
LOC: LAB 12:26
PROVIDERS: ATTEND General Practice
DX: R94.6 Abnormal results of thyroid function studies (principal); R79.89 Other specified abnormal findings of blood chemistry; E87.6 Hypokalemia; Z11.8 Encounter for screening for other infectious and parasitic diseases
CPT/HCPCS: 36415; 80048; 84439; 84443; 84480

== ENCOUNTER 2018-08-09 14:49 | Outpatient (CLI) ==
[2018-07-27 14:51] VITALS: BMI 20.7
== END 2018-08-09 14:50 | disposition home or self-care (01) ==
LOC: LAB 14:49
PROVIDERS: ATTEND General Practice
DX: Z11.8 Encounter for screening for other infectious and parasitic diseases (principal)
CPT/HCPCS: 87177